=== PATIENT | female | born 1995 | race Caucasian/White ===

== ENCOUNTER 2016-10-01 15:51 | Emergency (ER) | payer OTHER ==
[2016-10-01] MEDS ORDERED: Ketorolac INJ* 30 MG/ML 1 ML VIAL IV PUSH ONE (16:52)
[2016-10-01] MEDS ORDERED: PROCHLORPERAZINE INJ 5 MG/ML 2 ML VIAL IV ONE (16:53)
[2016-10-01] MEDS ORDERED: diPHENhydraMINE IV* 50 MG/ML 1 ml VIAL (BENADRYL) IV ONE (16:53)
[2016-10-01 17:39] LABS: Hematocrit 39 % (35-47); Hemoglobin 12.9 g/dl (12.0-16.0); Mean Corpuscular HGB Conc 33 g/dl (31-36); Mean Corpuscular Hemoglobin 30 pg (27-31); Mean Corpuscular Volume 91 fL (80-97); Mean Platelet Volume 11 um3 (7.4-10.4); Red Blood Count 4.32 10^6/ul (4.0-5.4); Red Cell Distribution Width 15 % (10.5-15); White Blood Count 4.3 10^3/ul (3.5-10.8)
[2016-10-01 17:50] LABS: BUN/Creatinine Ratio 12.5 (8-20); Potassium 3.9 mmol/L (3.5-5.0)
[2016-10-01 17:51] LABS: Albumin 4.1 g/dL (3.2-5.2); C Reactive Protein 11.18 mg/L (< 5.00); Calcium 8.9 mg/dL (8.6-10.3); EGFR African American 131.5 (>60); EGFR Non-African American 102.3 (>60); Globulin 2.8 g/dL (2-4); Total Bilirubin 0.6 mg/dL (0.2-1.0); Total Protein 6.9 g/dL (6.4-8.9)
[2016-10-01 18:23] VITALS: BP 100/54
--- NOTE | 2016-10-01 18:41 | ED ---
Headache - HPI Summary HPI Summary: Patient presents to ED with CC of BELTRAN x 4 days. Located bilateral temporally and behind the eyes. She feels an achy and a pressure. Denies migraine history. Denies N/V or auras. Denies photophobia/phonophobia. Denies this BELTRAN wort of life or acute onset. The onset of the BELTRAN was gradual, remains intermittent, and is not pulsatile. Denies other symptoms at this time. She states she is more stressed than normal and she has tried ibuprofen without improvement of symptoms. - History Of Current Complaint Chief Complaint: EDHeadache Stated Complaint: HEADACHE X 4 DAYS Time Seen by Provider: 10/01/16 16:06 Hx Obtained From: Patient Onset/Duration: Started days ago Initially Headache Was: Initial Pain Scale(0-10)= - 8 Currently Pain Is: Current Pain Scale(0-10)= - 8 Timing: Constant Character: Pressure Location of Headache: Temporal Aggravating Factor: Nothing Allevating Factors: Nothing Associated Signs And Symptoms: Negative - Risk Factors SAH Risk Factors: Negative Meningitis Risk Factors: Negative SDH Risk Factors: Negative Temporal Arteritis Risk Factors: Negative - Allergies/Home Medications Allergies/Adverse Reactions: Allergies Allergy/AdvReac Type Severity Reaction Status Date / Time No Known Allergies Allergy Verified 08/10/13 22:26 PMH/Surg Hx/FS Hx/Imm Hx Previously Healthy: Yes - Immunization History Hx Pertussis Vaccination: No Immunizations Up to Date: Unable to Obtain/Confirm Infectious Disease History: No Infectious Disease History: Denies: Traveled Outside the [place] in Last 30 Days - Social History Occupation: Unemployed Lives: With Family Alcohol Use: None Hx Substance Use: No Substance Use Type: Reports: None Hx Tobacco Use: Yes Smoking Status (MU): Current Every Day Smoker Review of Systems Constitutional: Negative Eyes: Negative Cardiovascular: Negative Respiratory: Negative Positive: no symptoms reported, see HPI Musculoskeletal: Negative Positive: Headache Psychological: Normal All Other Systems Reviewed And Are Negative: Yes Physical Exam Triage Information Reviewed: Yes Vital Signs On Initial Exam: Initial Vitals Temp Pulse Resp BP Pulse Ox 98.1 F 72 16 112/69 100 10/01/16 15:59 10/01/16 15:59 10/01/16 15:59 10/01/16 15:59 10/01/16 15:59 Vital Signs Reviewed: Yes Appearance: Positive: Well-Appearing, Well-Nourished Skin: Positive: Warm, Skin Color Reflects Adequate Perfusion Head/Face: Positive: Normal Head/Face Inspection Eyes: Positive: EOMI, JACQUELIN, Conjunctiva Clear Neck: Positive: Supple, No Lymphadenopathy Respiratory/Lung Sounds: Positive: Clear to Auscultation, Breath Sounds Present Cardiovascular: Positive: RRR Musculoskeletal: Positive: Normal, Strength/ROM Intact Neurological: Positive: Normal, Sensory/Motor Intact Psychiatric: Positive: Normal AVPU Assessment: Alert - Abby Coma Scale Coma Scale Total: 15 Diagnostics - Vital Signs Vital Signs Temp Pulse Resp BP Pulse Ox 10/01/16 18:22 98.7 F 58 16 100/54 10/01/16 16:06 98.1 F 72 16 112/69 100 10/01/16 15:59 98.1 F 72 16 112/69 100 - Laboratory Lab Results: Lab Results 10/01/16 10/01/16 Range/Units 17:20 17:20 WBC 4.3 (3.5-10.8) 10^3/ul RBC 4.32 (4.0-5.4) 10^6/ul Hgb 12.9 (12.0-16.0) g/dl Hct 39 (35-47) % MCV 91 (80-97) fL MCH 30 (27-31) pg MCHC 33 (31-36) g/dl RDW 15 (10.5-15) % Plt Count 146 L (150-450) 10^3/ul MPV 11 H (7.4-10.4) um3 Neut % (Auto) 52.2 (38-83) % Lymph % (Auto) 38.1 (25-47) % [place] % (Auto) 7.0 (1-9) % Eos % (Auto) 1.4 (0-6) % Baso % (Auto) 1.3 (0-2) % Absolute Neuts (auto) 2.2 (1.5-7.7) 10^3/ul Absolute Lymphs (auto) 1.6 (1.0-4.8) 10^3/ul Absolute Monos (auto) 0.3 (0-0.8) 10^3/ul Absolute Eos (auto) 0.1 (0-0.6) 10^3/ul Absolute Basos (auto) 0.1 (0-0.2) 10^3/ul Absolute Nucleated RBC 0 10^3/ul Nucleated RBC % 0 ESR Pending Sodium 138 (133-145) mmol/L Potassium 3.9 (3.5-5.0) mmol/L Chloride 108 (101-111) mmol/L Carbon Dioxide 26 (22-32) mmol/L Anion Gap 4 (2-11) mmol/L BUN 9 (6-24) mg/dL Creatinine 0.72 (0.51-0.95) mg/dL Est GFR ( Amer) 131.5 (>60) Est GFR (Non-Af Amer) 102.3 (>60) BUN/Creatinine Ratio 12.5 (8-20) Glucose 69 L (70-100) mg/dL Calcium 8.9 (8.6-10.3) mg/dL Total Bilirubin 0.60 (0.2-1.0) mg/dL AST 16 (13-39) U/L ALT 16 (7-52) U/L Alkaline Phosphatase 59 (34-104) U/L C-Reactive Protein 11.18 H (< 5.00) mg/L Total Protein 6.9 (6.4-8.9) g/dL Albumin 4.1 (3.2-5.2) g/dL Globulin 2.8 (2-4) g/dL Albumin/Globulin Ratio 1.5 (1-3) Result Diagrams: 10/01/16 17:20 10/01/16 17:20 Lab Statement: Any lab studies that have been ordered have been reviewed, and results considered in the medical decision making process. Headache Course/Dx - Course Course Of Treatment: Patient likely to have tension BELTRAN based on symptoms. ESR OK and not concerned for temporal arteritis. Patient is currently on her cycle. Patient is given toradol, compazine and benadryl and 1L fluids. BELTRAN improved. She is prescribed these medications. Medications were reveiwed with patient. Encouarged to follow up with PCP or return to ED for worsening symptoms. Return precautions given. Patient understands and agrees with plan. Ok for discharge. - Diagnoses Differential Diagnosis/HQI/PQRI: Migraine, Temporal Arteritis, Tension Headache Provider Diagnoses: Tension headache Discharge - Discharge Plan Condition: Stable Disposition: HOME Prescriptions: Ketorolac TAB * [Toradol TAB *] 10 mg PO Q6H #16 tab MDD 4 Prochlorperazine TAB* [Compazine Tab*] 10 mg PO Q6H PRN #20 tab PRN Reason: Headache diPHENhydraMINE PO* [Benadryl PO 25 MG TAB*] 25 mg PO Q6H PRN #16 tab PRN Reason: Headache Patient Education Materials: Tension Headache (ED) Referrals: Rik DELUCA,Meme [Primary Care Provider] - Additional Instructions: Follow up with PCP Drink plenty of fluids, including Gatorade Take medications at first onset of BELTRAN If BELTRAN becomes worse, return to the ED
[2016-10-01 18:59] LABS: Erythrocyte Sed Rate 11 mm/Hr (0-14)
== END 2016-10-01 18:22 | disposition home or self-care (01) ==
LOC: ED 15:51
DX: G44.209 Tension-type headache, unspecified, not intractable (principal); R51 Headache; F17.210 Nicotine dependence, cigarettes, uncomplicated
CPT/HCPCS: 36415; 80053; 85025; 85652; 86140; 86703; 96374; 96375; 99283; J0780; J1200; J1885

== ENCOUNTER 2016-12-19 16:06 | Emergency (ER) | payer SELFPAY ==
[2016-12-19 21:04] VITALS: BP 115/60
[2016-12-19] MEDS ORDERED: LORazepam TAB(*) 1 MG PO ONE (21:32)
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
== END 2016-12-19 18:40 | disposition home or self-care (01) ==
LOC: ED 16:06
DX: S16.1XXA Strain of muscle, fascia and tendon at neck level, initial encounter (principal); S20.212A Contusion of left front wall of thorax, initial encounter; S50.12XA Contusion of left forearm, initial encounter; V47.5XXA Car driver injured in collision with fixed or stationary object in traffic accident, initial encounter; Y93.89 Activity, other specified; Y92.410 Unspecified street and highway as the place of occurrence of the external cause; M25.512 Pain in left shoulder; F17.210 Nicotine dependence, cigarettes, uncomplicated
CPT/HCPCS: 99282

== ENCOUNTER 2017-08-22 09:47 | Emergency (ER) | payer MEDICAID, OTHER ==
[2017-08-22 10:40] VITALS: BP 122/66
--- NOTE | 2017-08-22 11:18 | UC ---
Abdominal Pain Female HPI - HPI Summary HPI Summary: 1 day of worsening right lower abdomen pain, no urinary sx, has not eaten today and is not hungry, pain with movement of abdomen, - History of Current Complaint Chief Complaint: UCGI Stated Complaint: ABDOMINAL COMPLAINT Time Seen by Provider: 08/22/17 11:16 Hx Obtained From: Patient Hx Last Menstrual Period: mirena ?: No Onset/Duration: Gradual Onset, Lasting Days - 1, Worse Since - getting worse all day Timing: Constant Pain Intensity: 6 Pain Scale Used: 0-10 Numeric Location: Discrete At: RLQ Radiates: No Character: Cramping, Sharp Aggravating Factor(s): Movement Alleviating Factor(s): Nothing Associated Signs and Symptoms: Positive: Decreased Appetite, Nausea. Negative: Constipation, Urinary Symptoms, Vaginal Bleeding, Vaginal Discharge, Vomiting, Diarrhea Allergies/Adverse Reactions: Allergies Allergy/AdvReac Type Severity Reaction Status Date / Time No Known Allergies Allergy Verified 08/22/17 10:41 Home Medications: Home Medications NK [No Home Medications Reported] 08/22/17 [History Confirmed 08/22/17] PMH/Surg Hx/FS Hx/Imm Hx Previously Healthy: Yes - Surgical History Surgical History: None Surgery Procedure, Year, and Place: denies - Family History Known Family History: Positive: Cardiac Disease, Hypertension, Diabetes - Social History Occupation: Employed Full-time Lives: With Family Alcohol Use: None Substance Use Type: None Smoking Status (MU): Heavy Every Day Tobacco Smoker Review of Systems Constitutional: Negative Skin: Negative Eyes: Negative ENT: Negative Respiratory: Negative Cardiovascular: Negative Gastrointestinal: Abdominal Pain - worsening right lower abdomen pain, Nausea Genitourinary: Negative Motor: Negative Neurovascular: Negative Musculoskeletal: Negative Neurological: Negative Psychological: Negative Is Patient Immunocompromised?: No All Other Systems Reviewed And Are Negative: Yes Physical Exam Triage Information Reviewed: Yes Appearance: Well-Appearing, Pain Distress - mild, Thin Vital Signs: Initial Vital Signs Temp 98.7 F 08/22/17 10:34 Pulse 80 08/22/17 10:34 Resp 18 08/22/17 10:34 BP 122/66 08/22/17 10:34 Pulse Ox 100 08/22/17 10:34 Vital Signs Reviewed: Yes Eye Exam: Normal Eyes: Positive: Conjunctiva Clear ENT Exam: Normal ENT: Positive: Normal ENT inspection, Hearing grossly normal, Pharynx normal. Negative: Trismus, Muffled voice, Hoarse voice Dental Exam: Normal Neck exam: Normal Neck: Positive: Supple, Nontender, No Lymphadenopathy Respiratory Exam: Normal Respiratory: Positive: Chest non-tender, No respiratory distress, No accessory muscle use Cardiovascular Exam: Normal Cardiovascular: Positive: RRR, Pulses Normal, Brisk Capillary Refill Abdominal Exam: Normal Abdomen Description: Positive: Nontender, No Organomegaly, Soft, McBurney's Point Tenderness. Negative: CVA Tenderness (R), CVA Tenderness (L) Bowel Sounds: Positive: Present Musculoskeletal Exam: Normal Musculoskeletal: Positive: Strength Intact, ROM Intact, No Edema Neurological Exam: Normal Neurological: Positive: Alert, Muscle Tone Normal Psychological Exam: Normal Skin Exam: Normal Diagnostics - Laboratory Diagnostic Studies Completed/Ordered: Ua-upreg (-), +1 leukoesterace, trace blood Abd Pain Female Course/Dx - Course Course Of Treatment: npo, to ED at [facility] for further evaluation of RLQ abdomen pain - Differential Dx/Diagnosis Provider Diagnoses: RLQ Abd Pain Discharge - Sign-Out/Discharge Documenting (check all that apply): Discharge/Admit/Transfer - Discharge Plan Condition: Stable Disposition: HOME Patient Education Materials: Acute Abdominal Pain (ED) Referrals: Rik DELUCA,Meme [Primary Care Provider] - Additional Instructions: You are being discharged from the urgent care to go directly to the emergency department at [facility] for further evaluation of abdomen pain. Nothing to eat or drink until seen by the emergency department provider - Billing Disposition and Condition Condition: STABLE Disposition: Home
--- NOTE | 2017-08-24 16:47 | UC ---
- Progress Note Progress Note: Reviewed final urine culture no growth no change 08/24/2017 16:47 Discharge - Sign-Out/Discharge Documenting (check all that apply): Post-Discharge Follow Up - Discharge Plan Condition: Stable Disposition: HOME Patient Education Materials: Acute Abdominal Pain (ED) Referrals: Rik DELUCA,Meme [Primary Care Provider] - Additional Instructions: You are being discharged from the urgent care to go directly to the emergency department at [facility] for further evaluation of abdomen pain. Nothing to eat or drink until seen by the emergency department provider - Billing Disposition and Condition Condition: STABLE Disposition: Home
== END 2017-08-22 11:31 | disposition home or self-care (01) ==
LOC: UCEAST 09:47
DX: R10.31 Right lower quadrant pain (principal); R11.0 Nausea; Z32.02 Encounter for pregnancy test, result negative; Z82.49 Family history of ischemic heart disease and other diseases of the circulatory system; Z83.3 Family history of diabetes mellitus; F17.200 Nicotine dependence, unspecified, uncomplicated
CPT/HCPCS: 81003; 84702; 87086; 99211; G0463

== ENCOUNTER 2017-08-22 12:12 | Emergency (ER) | payer MEDICAID ==
[2017-08-22 13:42] LABS: ABS Basophils 0 10^3/ul (0-0.2); ABS Eosinophils 0.1 10^3/ul (0-0.6); ABS Lymphocytes 1.6 10^3/ul (1.0-4.8); ABS Monocytes 0.6 10^3/ul (0-0.8); ABS Neutrophils 5.9 10^3/ul (1.5-7.7); ABS Nucleated RBC 0 10^3/ul; Eosinophil % 1.2 % (0-6); Hematocrit 40 % (35-47); Hemoglobin 13.4 g/dl (12.0-16.0); Lymphocyte % 19.9 % (25-47); Mean Corpuscular HGB Conc 34 g/dl (31-36); Mean Corpuscular Hemoglobin 31 pg (27-31); Mean Corpuscular Volume 92 fL (80-97); Mean Platelet Volume 10.7 um3 (7.4-10.4); Nucleated Red Blood Cells % 0.1; Platelet Count 204 10^3/ul (150-450); Red Blood Count 4.32 10^6/ul (4.00-5.40); Red Cell Distribution Width 14 % (10.5-15); White Blood Count 8.2 10^3/ul (3.5-10.8)
[2017-08-22 13:55] LABS: EGFR Non-African American 104.6 (>60)
--- NOTE | 2017-08-22 15:18 | ED ---
GI/ HPI - HPI Summary HPI Summary: 22-year-old female presents with right flank pain and bilateral lower abdominal pain for the past 4 days. She is pain is getting worse. She does admits to abnormal vaginal discharge. The discharge is not foul smelling or itchy. She denies any dysuria but states when wipes has the vaginal discharge. No urgency or frequency. No fevers. No nausea vomiting. No diarrhea constipation. No previous belly surgeries. Is sexually active with a new partner. Has no medical conditions. has mirena in. has been taking ibuprofen for pain. never had this pain before. - History of Current Complaint Chief Complaint: EDAbdPain Time Seen by Provider: 08/22/17 14:55 Stated Complaint: ABD PAIN Hx Last Menstrual Period: mirena Pain Intensity: 9 - Allergy/Home Medications Allergies/Adverse Reactions: Allergies Allergy/AdvReac Type Severity Reaction Status Date / Time No Known Allergies Allergy Verified 08/22/17 12:17 PMH/Surg Hx/FS Hx/Imm Hx Endocrine/Hematology History: Denies: Hx Diabetes, Hx Thyroid Disease Cardiovascular History: Denies: Hx Hypertension Respiratory History: Denies: Hx Asthma, Hx Chronic Obstructive Pulmonary Disease (COPD) GI History: Denies: Hx Ulcer Sensory History: Denies: Hx Legally Blind, Hx Deafness Opthamlomology History: Denies: Hx Legally Blind - Surgical History Surgery Procedure, Year, and Place: denies Infectious Disease History: No Infectious Disease History: Denies: Hx Hepatitis, Hx Human Immunodeficiency Virus (HIV), Traveled Outside the [place] in Last 30 Days - Family History Known Family History: Positive: Cardiac Disease, Hypertension, Diabetes - Social History Alcohol Use: None Hx Substance Use: No Substance Use Type: Reports: None Hx Tobacco Use: Yes Smoking Status (MU): Heavy Every Day Tobacco Smoker Review of Systems Negative: Fever Negative: Chest Pain Negative: Shortness Of Breath Positive: Abdominal Pain. Negative: Vomiting, Diarrhea, Nausea Positive: discharge, flank pain All Other Systems Reviewed And Are Negative: Yes Physical Exam Triage Information Reviewed: Yes Vital Signs On Initial Exam: Initial Vitals Temp Pulse Resp BP Pulse Ox 99 F 77 17 119/85 99 08/22/17 12:13 08/22/17 12:13 08/22/17 12:13 08/22/17 12:13 08/22/17 12:13 Vital Signs Reviewed: Yes Appearance: Positive: Well-Appearing Skin: Positive: Warm, Dry Head/Face: Positive: Normal Head/Face Inspection Eyes: Positive: Normal, Conjunctiva Clear ENT: Positive: Pharynx normal Respiratory/Lung Sounds: Positive: Clear to Auscultation, Breath Sounds Present Cardiovascular: Positive: Normal, RRR Abdomen Description: Positive: Soft, CVA Tenderness (R), Other: - tenderness lower abdominal pain, neg rovsings Bowel Sounds: Positive: Present Pelvic Exam: Positive: Discharge - yellow discharge, Tender w/ Cervical Motion Musculoskeletal: Positive: Normal Neurological: Positive: Normal Psychiatric: Positive: Normal Diagnostics - Vital Signs Vital Signs Temp Pulse Resp BP Pulse Ox 08/22/17 14:35 97.9 F 66 17 131/68 100 08/22/17 12:13 99 F 77 17 119/85 99 - Laboratory Lab Results: Lab Results 08/22/17 08/22/17 Range/Units 13:24 13:24 WBC 8.2 (3.5-10.8) 10^3/ul RBC 4.32 (4.00-5.40) 10^6/ul Hgb 13.4 (12.0-16.0) g/dl Hct 40 (35-47) % MCV 92 (80-97) fL MCH 31 (27-31) pg MCHC 34 (31-36) g/dl RDW 14 (10.5-15) % Plt Count 204 (150-450) 10^3/ul MPV 10.7 H (7.4-10.4) um3 Neut % (Auto) 71.6 (38-83) % Lymph % (Auto) 19.9 L (25-47) % [place] % (Auto) 6.9 (0-7) % Eos % (Auto) 1.2 (0-6) % Baso % (Auto) 0.4 (0-2) % Absolute Neuts (auto) 5.9 (1.5-7.7) 10^3/ul Absolute Lymphs (auto) 1.6 (1.0-4.8) 10^3/ul Absolute Monos (auto) 0.6 (0-0.8) 10^3/ul Absolute Eos (auto) 0.1 (0-0.6) 10^3/ul Absolute Basos (auto) 0 (0-0.2) 10^3/ul Absolute Nucleated RBC 0 10^3/ul Nucleated RBC % 0.1 Sodium 139 (135-145) mmol/L Potassium 4.1 (3.5-5.0) mmol/L Chloride 107 (101-111) mmol/L Carbon Dioxide 27 (22-32) mmol/L Anion Gap 5 (2-11) mmol/L BUN 10 (6-24) mg/dL Creatinine 0.70 (0.51-0.95) mg/dL Est GFR ( Amer) 126.6 (>60) Est GFR (Non-Af Amer) 104.6 (>60) BUN/Creatinine Ratio 14.3 (8-20) Glucose 86 (70-100) mg/dL Calcium 9.4 (8.6-10.3) mg/dL Total Bilirubin 0.90 (0.2-1.0) mg/dL AST 14 (13-39) U/L ALT 7 (7-52) U/L Alkaline Phosphatase 65 (34-104) U/L C-Reactive Protein 7.62 (<8.01) mg/L Total Protein 6.6 (6.4-8.9) g/dL Albumin 4.3 (3.2-5.2) g/dL Globulin 2.3 (2-4) g/dL Albumin/Globulin Ratio 1.9 (1-3) Lipase 47 (11.0-82.0) U/L Beta HCG, Quant < 0.60 mIU/mL Result Diagrams: 08/22/17 13:24 08/22/17 13:24 Lab Statement: Any lab studies that have been ordered have been reviewed, and results considered in the medical decision making process. - Ultrasound No standard instances Ultrasound Interpretation: No Acute Changes Ultrasound Interpretation Completed By: Radiologist GIGU Course/Dx - Course Course Of Treatment: 22-year-old female presents with right flank pain and bilateral lower abdominal pain for the past 4 days. She is pain is getting worse. She does admits to abnormal vaginal discharge. The discharge is not foul smelling or itchy. She denies any dysuria but states when wipes has the vaginal discharge. No urgency or frequency. No fevers. No nausea vomiting. No diarrhea constipation. No previous belly surgeries. Is sexually active with a new partner. Has no medical conditions. has mirena in. has been taking ibuprofen for pain. never had this pain before. on exam has tenderness lower abdomen, pos CVA tenderness right. wbc and crp normal. urine from uc shows possible uti but will wait for cultures as could be contaminate from pelvis. do not suspect appendicitis as how wide spread pain is and labs normal with pain this long with expect elevation in such. on pelvic has thick yellow discharge. will treat as PID as tenderness CMT. will discharge with flagyl and doxcycline. renal u/s normal. pelvic u/s normal. will have follow up with harness inspector. told no sex. told to call for results to tell bf. patient understand and agrees with plan. - Diagnoses Differential Diagnoses - Female: Appendicitis, Ovarian Cyst, Ovarian Torsion, Pelvic Inflammatory Disease, Pyelonephritis, STD, Urinary Tract Infection Provider Diagnoses: PID (pelvic inflammatory disease) Discharge - Sign-Out/Discharge Documenting (check all that apply): Discharge/Admit/Transfer - Discharge Plan Condition: Good Disposition: HOME Prescriptions: DOXYcycline CAP(*) [DOXYcycline 100MG CAP(*)] 100 mg PO BID #27 cap metroNIDAZOLE [Flagyl] 500 mg PO BID #27 tablet oxyCODONE TAB* [Roxycodone TAB 5 mg*] 5 mg PO Q6H PRN #10 tab MDD 4 PRN Reason: Pain Patient Education Materials: Pelvic Inflammatory Disease (ED) Forms: *Work Release Referrals: Rik DELUCA,[facility] [Primary Care Provider] - Henrique Lambert MD [Medical Doctor] - Additional Instructions: Take Flagyl twice a day for 14 days Take doxycycline twice a day for 14 days, wear sunscreen and take with food Take Tylenol or ibuprofen for fever and pain every 6 hours, use narcotic for break through pain every 6 hours Follow up with harness inspector Return to ED if develop any new or worsening symptoms - Billing Disposition and Condition Condition: GOOD Disposition: Home
[2017-08-22] MEDS ORDERED: DOXYcycline CAP(*) 100 MG PO ONE (15:59)
[2017-08-22] MEDS ORDERED: metroNIDAZOLE TAB* 250 MG PO ONE (15:59)
[2017-08-22] MEDS ORDERED: cefTRIAXone VIAL(*) 250 MG VIAL IM ONE (15:59)
--- NOTE | 2017-08-22 16:01 | RAD ---
INDICATION: Right flank pain COMPARISON: None TECHNIQUE: Longitudinal and transverse scans of the kidneys were obtained. FINDINGS: Right kidney: The right kidney is normal in size and echogenicity. No renal masses, calculi, or hydronephrosis is seen. The right kidney measures 10.2 x 3.6 x 4.2 cm. Other: None IMPRESSION: NORMAL RIGHT RENAL SONOGRAM
--- NOTE | 2017-08-22 16:03 | RAD ---
INDICATION: Right pelvic pain COMPARISON: Most recent comparison ultrasound is dated August 24, 2011 TECHNIQUE: Real-time transabdominal and transvaginal ultrasound examination of the female pelvis including grayscale and Doppler color flow imaging. FINDINGS: Uterus: The uterus is normal in size and echogenicity measuring 8.4 x 3.7 x 4.8 cm. The endometrial stripe is smooth and uniform measuring 3 mm in thickness. The intrauterine device appears to be appropriately positioned at the fundal height endometrium. Ovaries: The right and left ovary measure 2.9 x 2.6 x 2.3 cm and 4.4 x 2.1 x 2.1 cm, respectively. Normal arterial and venous waveforms are identified. Within the left ovary there is an anechoic and avascular structure measuring 2 cm in greatest dimension most consistent with a left ovarian follicle. There is no free fluid in the cul-de-sac. IMPRESSION: 1. Normal and age-appropriate pelvic ultrasound. 2. Appropriately positioned intrauterine device.
[2017-08-22] MEDS ORDERED: Lidocaine 1%* 5 ML VIAL ONE (16:07)
[2017-08-22 16:35] VITALS: BP 117/72
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
--- NOTE | 2017-08-24 06:32 | PN ---
Progress Note - Progress Note Date of Service: 08/24/17 Note: Patient's vaginal culture grew Gardnerella. Patient was placed on Flagyl. No further action required.
== END 2017-08-22 16:37 | disposition home or self-care (01) ==
LOC: ED 12:12
DX: N73.9 Female pelvic inflammatory disease, unspecified (principal); B96.89 Other specified bacterial agents as the cause of diseases classified elsewhere; A56.11 Chlamydial female pelvic inflammatory disease; F17.200 Nicotine dependence, unspecified, uncomplicated; Z97.5 Presence of (intrauterine) contraceptive device
CPT/HCPCS: 36415; 76775; 76830; 80053; 83690; 84702; 85025; 86140; 86592; 86703; 87480; 87491; 87510; 87591; 87661; 96372; 99283; A9270-GY; J0696

== ENCOUNTER 2019-02-08 13:12 | Emergency (ER) | payer OTHER ==
[2019-02-08 13:18] VITALS: BP 123/78
== END 2019-02-08 14:02 | disposition left against medical advice (07) ==
LOC: ED 13:12
DX: Z53.21 Procedure and treatment not carried out due to patient leaving prior to being seen by health care provider (principal); R10.9 Unspecified abdominal pain
CPT/HCPCS: 99282

== ENCOUNTER 2019-04-07 18:32 | Emergency (ER) | payer OTHER ==
[2019-04-07] MEDS ORDERED: NS 0.9% 1000 ML** 2,000 ML IV ONE (19:16)
[2019-04-07] MEDS ORDERED: Ondansetron INJ* 2 MG/ML VIAL IV ONE (19:16)
[2019-04-07] MEDS ORDERED: Lorazepam PYXIS KEY PRN (19:16)
[2019-04-07] MEDS ORDERED: LORazepam INJ* 2 MG/ML 1 ML VIAL IV PUSH ONE (19:16)
--- NOTE | 2019-04-07 19:23 | ED ---
Complex/Multi-Sys Presentation - HPI Summary HPI Summary: Patient is a 24 y/o F presenting to [facility] with complaints of abdominal pain, chest pain, SOB and N/V. CP is characterized as a tightness, SOB is characterized as feeling like, "I can't get enough air in my lungs". Patient was evaluated on 04/02/19 for similar Sx after taking ecstasy for the first time. CT abd/pel was done, patient was also given IM Bentyl which provided relief in Sx. Patient was discharged to home subsequently. Today, patient had return of Sx after consuming food. No ecstasy usage is reported. Decreased appetite secondary to N/V is noted. Diarrhea is denied. Patient is a current smoker, uses alcohol rarely, and uses marijuana. Home medications and allergies are reviewed. - History Of Current Complaint Chief Complaint: EDNauseaVomitDiarrh Time Seen by Provider: 04/07/19 19:05 Hx Obtained From: Patient Onset/Duration: Still Present Timing: Constant Severity Currently: Severe Location: Pain At: Associated Signs And Symptoms: Positive: SOB, Chest Pain, Nausea, Vomiting, Abdominal Pain, Decreased Oral Intake. Negative: Diarrhea - Allergies/Home Medications Allergies/Adverse Reactions: Allergies Allergy/AdvReac Type Severity Reaction Status Date / Time No Known Allergies Allergy Verified 02/08/19 13:17 PMH/Surg Hx/FS Hx/Imm Hx Endocrine/Hematology History: Denies: Hx Diabetes, Hx Thyroid Disease Cardiovascular History: Denies: Hx Hypertension Respiratory History: Denies: Hx Asthma, Hx Chronic Obstructive Pulmonary Disease (COPD) GI History: Denies: Hx Ulcer Sensory History: Denies: Hx Legally Blind, Hx Deafness Opthamlomology History: Denies: Hx Legally Blind - Surgical History Surgery Procedure, Year, and Place: denies Infectious Disease History: No Infectious Disease History: Denies: Hx Hepatitis, Hx Human Immunodeficiency Virus (HIV), Traveled Outside the [place] in Last 30 Days - Family History Known Family History: Positive: Cardiac Disease, Hypertension, Diabetes - Social History Alcohol Use: Rare Hx Substance Use: No Substance Use Type: Reports: Marijuana Hx Tobacco Use: Yes Smoking Status (MU): Heavy Every Day Tobacco Smoker Review of Systems Positive: Chest Pain Positive: Shortness Of Breath Gastrointestinal: Other - positive - decreased appetite Positive: Abdominal Pain, Vomiting, Nausea. Negative: Diarrhea All Other Systems Reviewed And Are Negative: Yes Physical Exam - Summary Physical Exam Summary: Appearance: Well-appearing, Well-nourished, lying in bed comfortably, anxious- appearing. Skin: Warm, dry, no obvious rash Eyes: sclera anicteric, no conjunctival pallor ENT: mucous membranes moist, pharynx appears normal Neck: Supple, nontender Respiratory: Clear to auscultation, no signs of respiratory distress; hyperventilating. Cardiovascular: Normal S1, S2. No murmurs. Normal distal pulses in tibial and radial bilaterally. Abdomen: Soft, nontender, normal active bowel sounds present Musculoskeletal: Normal, Strength/ROM Intact Neurological: A&Ox3, awake and alert, mentation is normal, speech is fluent and appropriate Psychiatric: affect is normal, does appear anxious but not depressed Triage Information Reviewed: Yes Vital Signs On Initial Exam: Initial Vitals Temp Pulse Resp BP Pulse Ox 98.1 F 63 24 126/83 100 04/07/19 18:33 04/07/19 18:33 04/07/19 18:33 04/07/19 18:33 04/07/19 18:33 Vital Signs Reviewed: Yes Procedures - Sedation Patient Received Moderate/Deep Sedation with Procedure: No Diagnostics - Vital Signs Vital Signs Temp Pulse Resp BP Pulse Ox 04/07/19 18:33 98.1 F 63 24 126/83 100 - Laboratory Lab Statement: Any lab studies that have been ordered have been reviewed, and results considered in the medical decision making process. Re-Evaluation - Re-Evaluation First Eval Re-Evaluation Time: 21:59 Change: Improved Comment: Patient is resting comfortably in stretcher. She will be discharged to home. Complex Multi-Symp Course/Dx Assessment/Plan: Patient is a 24 y/o F presenting to [facility] with complaints of abdominal pain, chest pain, SOB and N/V. CP is characterized as a tightness, SOB is characterized as feeling like, "I can't get enough air in my lungs". Patient was evaluated on 04/02/19 for similar Sx after taking ecstasy for the first time. CT abd/pel was done, patient was also given IM Bentyl which provided relief in Sx. Patient was discharged to home subsequently. Today, patient had return of Sx after consuming food. No ecstasy usage is reported. Decreased appetite secondary to N/V is noted. Diarrhea is denied. Patient is noted be anxious-appearing and hyperventilating. During ED course, patient was given fluids, Zofran 8 mg IV, and Ativan 1 mg IV. 2158 patient resting comfortably in bed. She will be discharged to home with Ativan and Zofran prescriptions. 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 Discharge ED - Sign-Out/Discharge Documenting (check all that apply): Patient Departure - discharge - Discharge Plan Condition: Improved Disposition: HOME Prescriptions: LORazepam TAB(*) [Ativan 0.5 MG TAB (*)] 0.5 mg PO Q6H PRN #15 tab MDD 3 PRN Reason: Anxiety Ondansetron ODT TAB* [Zofran 4 MG Odt TAB*] 8 mg PO Q6H PRN #15 tab.odt PRN Reason: Nausea Patient Education Materials: Polysubstance Abuse (ED) Referrals: Care [facility] [Outside] - If Needed Additional Instructions: The ecstasy sometimes can result in adverse reactions up to a week, though usually only for a few hours or a couple of days. I have prescribed ativan to help with the anxiety and tightness in the chest, and zofran to help with the nausea. - Billing Disposition and Condition Condition: IMPROVED Disposition: Home - Attestation Statements Document Initiated by Viji: Yes Documenting Scribe: FALLON ARCINIEGA Provider For Whom Viji is Documenting (Include Credential): ANALILIA LOVE MD Scribe Attestation: IFALLON, scribed for ANALILIA LOVE MD on 04/11/19 at 1837. Scribe Documentation Reviewed: Yes Provider Attestation: The documentation as recorded by the FALLON gray accurately reflects the service I personally performed and the decisions made by me, ANALILIA LOVE MD Status of Scribe Document: Viewed
[2019-04-08 01:59] VITALS: BP 116/79
== END 2019-04-08 01:58 | disposition home or self-care (01) ==
LOC: ED 18:32
DX: F16.10 Hallucinogen abuse, uncomplicated (principal); T50.995A Adverse effect of other drugs, medicaments and biological substances, initial encounter; R10.9 Unspecified abdominal pain; R06.02 Shortness of breath; R07.9 Chest pain, unspecified; R11.2 Nausea with vomiting, unspecified; F17.210 Nicotine dependence, cigarettes, uncomplicated
CPT/HCPCS: 96361; 96374; 96375; 99284; J2060; J2405

== ENCOUNTER 2020-05-16 19:15 | Inpatient (IN) ==
[2020-05-16] MEDS ORDERED: Buffered Lidocaine 1% SYRIN 1 ml INTRADERM ONE (20:31)
[2020-05-16] MEDS ORDERED: Lactated Ringers 1000 ml BAG 1,000 ML IV ONE (20:31)
[2020-05-16] MEDS ORDERED: Oxytocin in LR 20 UNITS/1,000 ML BAG IVPB SCH (21:00)
[2020-05-16] MEDS ORDERED: Lactated Ringers 1000 ml BAG 1,000 ML IV SCH (21:00)
[2020-05-16 21:29] LABS: ABS Eosinophils 0.1 10^3/ul (0-0.6); ABS Monocytes 0.8 10^3/ul (0-0.8); ABS Neutrophils 9.4 10^3/ul (1.5-7.7); Eosinophil % 0.7 %; Hematocrit 31 % (35-47); Hemoglobin 10.4 g/dL (12.0-16.0); Lymphocyte % 15.9 %; Mean Corpuscular HGB Conc 34 g/dL (31-36); Mean Corpuscular Hemoglobin 30 pg (27-31); Mean Corpuscular Volume 88 fL (80-97); Mean Platelet Volume 10.5 fL (7.4-10.4); Platelet Count 228 10^3/uL (150-450); Red Blood Count 3.52 10^6 /uL (3.70-4.87); Red Cell Distribution Width 15 % (10-15); White Blood Count 12.3 10^3/uL (3.5-10.8)
[2020-05-16 21:48] LABS: Urine Benzodiazepine Screen None Detected (None Detect); Urine Cannabinoids Screen None Detected (None Detect); Urine Opiates Screen None Detected (None Detect)
[2020-05-17] MEDS ORDERED: Glycerin ADULT 2.4 gm SUPP PR PRN (02:50)
[2020-05-17] MEDS ORDERED: Witch Hazel PAD JAR TOPICAL PRN (02:50)
[2020-05-17] MEDS ORDERED: Dibucaine 1% OINT 28.35 GM TUBE PR PRN (02:50)
[2020-05-17] MEDS ORDERED: Oxytocin in LR 20 UNITS/1,000 ML BAG IVPB SCH (03:00)
[2020-05-17] MEDS ORDERED: Lactated Ringers 1000 ml BAG 1,000 ML IV SCH (03:00)
[2020-05-17] MEDS ORDERED: Influenza VAC *QUAD* 2020-21* 0.5 ML SYRINGE IM ONE (09:00)
[2020-05-18 07:48] LABS: ABS Basophils 0.1 10^3/ul (0-0.2); ABS Eosinophils 0.1 10^3/ul (0-0.6); ABS Lymphocytes 1.9 10^3/ul (1.0-4.8); ABS Monocytes 0.9 10^3/ul (0-0.8); Eosinophil % 0.8 %; Hematocrit 30 % (35-47); Hemoglobin 10.2 g/dL (12.0-16.0); Mean Corpuscular HGB Conc 34 g/dL (31-36); Mean Corpuscular Hemoglobin 30 pg (27-31); Mean Corpuscular Volume 89 fL (80-97); Mean Platelet Volume 10.3 fL (7.4-10.4); Platelet Count 198 10^3/uL (150-450); Red Cell Distribution Width 16 % (10-15)
[2020-05-18 08:13] VITALS: BP 111/72
== END 2020-05-18 11:09 | disposition home or self-care (01) | DRG 560 ==
LOC: MCHOBOUT 19:15 → MCHOB 20:28
PROVIDERS: ADMIT Midwife; ATTEND Midwife

== ENCOUNTER 2023-06-29 13:21 | Inpatient (IN) ==
[2023-06-29] MEDS ORDERED: Lidocaine 1% VIAL 10 MG/ML 30 ML VIAL INJ PRN (13:43)
[2023-06-29 14:30] LABS: ABS Lymphocytes 1.7 10^3/uL (1.0-4.8); ABS Monocytes 0.6 10^3/uL (0.0-0.9); ABS Neutrophils 8.9 10^3/uL (1.5-7.6); ABS Nucleated RBC 0.01 10^3/ul; Eosinophil % 0.4 %; Hematocrit 30.4 % (35-45); Hemoglobin 10.5 g/dL (11.5-14.3); Lymphocyte % 14.9 %; Mean Corpuscular Hgb Conc 34.7 g/dL (31-36); Mean Corpuscular Volume 89.4 fL (80-97); Mean Platelet Volume 10.3 fL (7.5-11.2); Nucleated Red Blood Cells % 0.1 %/100WBC (0.0-0.8); Platelet Count 210 10^3/uL (150-450); Red Cell Distribution Width 13.7 % (12-17); White Blood Count 11.3 10^3/uL (3.8-11.8)
[2023-06-29 14:58] LABS: Urine Benzodiazepine Screen None Detected (None Detect); Urine Cannabinoids Screen Presumptive Positive (None Detect); Urine Opiates Screen None Detected (None Detect)
[2023-06-29] MEDS: Oxytocin in LR 20,000 MILLI.UNIT/1,000 ML BAG IV SCH ×2 (18:12→22:16)
[2023-06-29] MEDS ORDERED: Glycerin ADULT 2.4 gm SUPP PR PRN (18:47)
[2023-06-29] MEDS: Dibucaine 1% OINT 28.35 GM TUBE PR PRN (20:12)
[2023-06-29] MEDS: Witch Hazel PAD JAR TOPICAL PRN (20:12)
[2023-06-29] MEDS ORDERED: Ondansetron 4 mg VIAL 2 MG/ML 2 ml VIAL IV PRN (20:28)
[2023-06-29] MEDS: Lactated Ringers 1000 ml BAG 1,000 ML IV SCH (22:02)
[2023-06-29] MEDS: Lactated Ringers 1000 ml BAG 1,000 ML IV ONE (22:16)
[2023-06-29] MEDS: Buffered Lidocaine 1% SYRIN 1 ml INTRADERM ONE (22:16)
[2023-06-30] MEDS: Nitrofurantoin (monohydrate/macrocrystals) 100 mg CAP PO SCH ×2 (00:25→02:17)
[2023-06-30] MEDS: Nicotine PATCH 21 MG/24 HR PATCH TRANSDERM SCH (02:15)
[2023-06-30] MEDS: Prochlorperazine 5 mg/ml 2 ml VIAL (10 mg) IM PRN (03:46)
[2023-06-30 04:41] LABS: ABS Basophils 0.1 10^3/uL (0.0-0.1); ABS Lymphocytes 1.3 10^3/uL (1.0-4.8); ABS Monocytes 0.6 10^3/uL (0.0-0.9); ABS Neutrophils 16.6 10^3/uL (1.5-7.6); Hematocrit 31.4 % (35-45); Hemoglobin 10.8 g/dL (11.5-14.3); Mean Corpuscular Hemoglobin 30.6 pg (27-33); Mean Corpuscular Hgb Conc 34.4 g/dL (31-36); Mean Platelet Volume 10.3 fL (7.5-11.2); Platelet Count 228 10^3/uL (150-450); Red Blood Count 3.53 10^6/uL (3.63-4.92); Red Cell Distribution Width 13.9 % (12-17); White Blood Count 18.5 10^3/uL (3.8-11.8)
[2023-06-30] MEDS: Lactated Ringers 1000 ml BAG 1,000 ML IV SCH (04:44)
[2023-06-30 04:55] LABS: Albumin 3.2 g/dL (3.2-5.2); Calcium 8.6 mg/dL (8.6-10.3); Creatinine, Serum 0.56 mg/dL (0.51-0.95); Globulin 3.1 g/dL (2-4); Magnesium 1.7 mg/dL (1.9-2.7); Total Bilirubin 0.6 mg/dL (0.2-1.0); Total Protein 6.3 g/dL (6.4-8.9); eGFR CKD-EPI 127.4 (>60)
[2023-06-30] MEDS ORDERED: Magnesium Sulfate 2 gm BAG 2 GM/50 ML BAG IVPB ONE (06:52)
[2023-07-01 07:19] LABS: Albumin 3.1 g/dL (3.2-5.2); Albumin/Globulin Ratio 1.1 (1-3); Calcium 8.5 mg/dL (8.6-10.3); Creatinine, Serum 0.6 mg/dL (0.51-0.95); Globulin 2.7 g/dL (2-4); Magnesium 1.7 mg/dL (1.9-2.7); Potassium 3.7 mmol/L (3.5-5.0); Total Bilirubin 0.6 mg/dL (0.2-1.0); Total Protein 5.8 g/dL (6.4-8.9); eGFR CKD-EPI 125.3 (>60)
[2023-07-01 10:01] VITALS: BP 124/53
[2023-07-02 14:37] LABS: Anaplasma phagocytophilum Negative (Negative); B. miyamotoi PCR, B Negative (Negative); Babesia divergens/MO-1 Negative (Negative); Babesia ducani Negative (Negative); Ehrlichia chaffeensis Negative (Negative); Ehrlichia ewingii/canis Negative (Negative); Ehrlichia muris eauclairensis Negative (Negative)
== END 2023-07-01 13:03 | disposition home or self-care (01) | DRG 560 ==
LOC: MCHOBOUT 13:21 → MCHOB 13:42
PROVIDERS: ADMIT Advanced Practice Midwife; ATTEND Advanced Practice Midwife